=== PATIENT | male | born 1945 | race Caucasian/White ===

== ENCOUNTER 2021-10-24 08:03 | Day surgery (SDC) | payer BC, OTHER ==
[2021-10-24 08:21] VITALS: BMI 26.1
[2021-10-24 11:40] VITALS: TEMP 97.7
[2021-10-24 11:43] VITALS: BP 116/55; PULSE 50
== END 2021-10-24 10:45 | disposition home or self-care (01) ==
LOC: FASU-ENDO 08:03
PROVIDERS: ATTEND Internal Medicine Gastroenterology
PROC: 0DBH8ZX Excision of Cecum, Via Natural or Artificial Opening Endoscopic, Diagnostic (ICD-10-PCS; principal; 2021-10-24 09:33)
DX: Z12.11 Encounter for screening for malignant neoplasm of colon (principal)
CPT/HCPCS: 88305-TC

== ENCOUNTER 2024-09-23 08:14 | Day surgery (SDC) | payer BC, MEDICARE ==
[2024-09-21 15:59] VITALS: BMI 26.2
[2024-09-23 08:39] VITALS: RESP 16
[2024-09-23 12:37] VITALS: BP 125/75; PULSE 60; TEMP 97.7
== END 2024-09-23 10:55 | disposition home or self-care (01) ==
LOC: FASU-ENDO 08:14
PROVIDERS: ATTEND Internal Medicine Gastroenterology
PROC: 0DBM8ZX Excision of Descending Colon, Via Natural or Artificial Opening Endoscopic, Diagnostic (ICD-10-PCS; 2024-09-23)
PROC: 0DBK8ZX Excision of Ascending Colon, Via Natural or Artificial Opening Endoscopic, Diagnostic (ICD-10-PCS; principal; 2024-09-23 09:42)
DX: Z12.11 Encounter for screening for malignant neoplasm of colon (principal); D12.2 Benign neoplasm of ascending colon; D12.4 Benign neoplasm of descending colon; K63.5 Polyp of colon; Z86.0109 Personal history of other colon polyps
CPT/HCPCS: 88305-TC